=== PATIENT | male | born 1995 | race Caucasian/White ===

== ENCOUNTER 2018-07-27 15:45 | Inpatient (IN) | payer OTHER ==
--- NOTE | 2018-07-27 16:03 | EDPHY ---
H & P Stated Complaint: M1 hold, gravely disabled Source: Patient, Police Exam Limitations: Clinical condition - Personal History Current Tetanus/Diphtheria Vaccine: Unsure Current Tetanus Diphtheria and Acellular Pertussis (TDAP): Unsure - Medical/Surgical History Hx Asthma: No Hx Chronic Respiratory Disease: No Hx Diabetes: No Hx Cardiac Disease: No Hx Renal Disease: No Hx Cirrhosis: No Hx Alcoholism: No Hx HIV/AIDS: No Hx Splenectomy or Spleen Trauma: No - Social History Smoking Status: Current some day smoker Time Seen by Provider: 07/27/18 15:57 HPI/ROS: HPI: This is a 22-year-old male who presents with Chief Complaint: M1 hold Location: Psychiatric Quality: M1 hold Duration: Unknown Signs and Symptoms: denies auditory hallucinations, denies visual hallucinations, denies suicidal ideation with a plan, denies homicidal ideation , denies paranoia Timing: Unknown Severity: Moderate to severe Context: Patient presents accompanied by police on M1 hold. Police report that they were called by the patient's mother who advised that the patient is hearing voices which are telling him to run out of a window. He had cleared a path to the window on the 4th floor of the hotel he was staying in with the intention of jumping out of the window in order to end his life. 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 Patient is a very difficult historian and he is uncooperative with exam. Patient is paranoid, self critical and believes people are talking about him. Unsure if prior psychiatric diagnoses or hospitalizations. Patient will not give me his mother's telephone number. Modifying Factors: Comment: ROS: A comprehensive 10 system review of systems is otherwise negative aside from elements mentioned in the history of present illness. MEDICAL/SURGICAL/SOCIAL HISTORY: Medical history: Recreational Adderall use/abuse Surgical history: Meckel's diverticulum repair, appendectomy Social history: Tobacco user. Drinks alcohol. Family history noncontributory. CONSTITUTIONAL: Tidy, uncooperative with exam, will not answer questions, young adult white male, awake and alert, no obvious distress HEENT: Atraumatic and normocephalic, PERRL, EOMI. Nares patent; no rhinorrhea; no nasal mucosal edema. Tympanic membranes clear. Oropharynx clear, no exudate and moist pink mucosa. Airway patent. No lymphadenopathy. No meningismus. Cardiovascular: Normal S1/S2, regular rate, regular rhythm, without murmur rub or gallop. PULMONARY/CHEST: Symmetrical and nontender. Clear to auscultation bilaterally. Good air movement. No accessory muscle usage. ABDOMEN: Soft, nondistended, nontender, no rebound, no guarding, no peritoneal signs, no masses or organomegaly. No CVAT. EXTREMITIES: 2/2 pulses, strength 5/5, no deformities, no clubbing, no cyanosis or edema. NEUROLOGICAL: no focal neuro deficits. GCS 15. SKIN: Warm and dry, no erythema. no rash. Good capillary refill. PSYCH: Poor eye contact, no flight of ideas, tangential disorganized thought process, poor insight and judgment, denies auditory hallucinations, denies visual hallucinations, denies suicidal ideation with a plan, denies homicidal ideation, denies paranoia (Yoanna Benavidez) Constitutional: Initial Vital Signs Temperature (C) 37 C 07/27/18 15:48 Heart Rate 89 07/27/18 15:48 Respiratory Rate 18 07/27/18 15:48 Blood Pressure 134/85 H 07/27/18 15:48 O2 Sat (%) 97 07/27/18 15:48 O2 Delivery Mode Room Air Allergies/Adverse Reactions: Penicillins Allergy (Verified 07/27/18 15:52) Home Medications: Medication Instructions Recorded NK [No Known Home Meds] 07/27/18 Medical Decision Making ED Course/Re-evaluation: Vital signs reviewed and stable upon arrival. Agree with M1 hold as patient appears to be gravely disabled and uncooperative with exam. Labs and urine drug screen ordered. Nursing staff called police dispatch who did not have any further information. 1700: Laboratory studies reviewed and unremarkable. Urine drug screen negative. Medically clear for mental health evaluation 1707: End of shift. Signed over to Dr. Alex pending mental health evaluation and final disposition. This patient was seen under the supervision of my secondary supervising physician. Discussed this patient with Dr. Alex. (Yoanna Benavidez) I assumed care of the patient at 5pm awaiting psychiatric disposition. (Kj Alex) Differential Diagnosis: Differential diagnosis includes but is not limited to major depression, anxiety disorder, schizophrenia, bipolar disorder, intoxicant use, suicidal ideation, psychosis, camilo. (Yoanna Benavidez) Other Provider: Update at 9:30 p.m.: The patient has been accepted for inpatient psychiatric hospitalization at [facility] by Dr. Luque. I have filled out the EMTALA transfer form. (Kj Alex) - Data Points Laboratory Results: Laboratory Results 07/27/18 14:00 07/27/18 14:00 07/27/18 07/27/18 07/27/18 16:13 14:00 14:00 WBC 6.26 10^3/uL 10^3/uL (3.80-9.50) RBC 4.93 10^6/uL 10^6/uL (4.40-6.38) Hgb 15.7 g/dL g/dL (13.7-17.5) Hct 44.0 % % (40.0-51.0) MCV 89.2 fL fL (81.5-99.8) MCH 31.8 pg pg (27.9-34.1) MCHC 35.7 g/dL g/dL (32.4-36.7) RDW 12.5 % % (11.5-15.2) Plt Count 276 10^3/uL 10^3/uL (150-400) MPV 9.8 fL fL (8.7-11.7) Neut % (Auto) 53.9 % % (39.3-74.2) Lymph % (Auto) 31.8 % % (15.0-45.0) Gregg % (Auto) 9.6 % % (4.5-13.0) Eos % (Auto) 3.8 % % (0.6-7.6) Baso % (Auto) 0.6 % % (0.3-1.7) Nucleat RBC Rel Count 0.0 % % (0.0-0.2) Absolute Neuts (auto) 3.37 10^3/uL 10^3/uL (1.70-6.50) Absolute Lymphs (auto) 1.99 10^3/uL 10^3/uL (1.00-3.00) Absolute Monos (auto) 0.60 10^3/uL 10^3/uL (0.30-0.80) Absolute Eos (auto) 0.24 10^3/uL 10^3/uL (0.03-0.40) Absolute Basos (auto) 0.04 10^3/uL 10^3/uL (0.02-0.10) Absolute Nucleated RBC 0.00 10^3/uL 10^3/uL (0-0.01) Immature Gran % 0.3 % % (0.0-1.1) Immature Gran # 0.02 10^3/uL 10^3/uL (0.00-0.10) Sodium 137 mEq/L mEq/L (135-145) Potassium 4.0 mEq/L mEq/L (3.5-5.2) Chloride 101 mEq/L mEq/L (97-110) Carbon Dioxide 22 mEq/l mEq/l (22-31) Anion Gap 14 mEq/L mEq/L (6-14) BUN 14 mg/dL mg/dL (7-23) Creatinine 0.9 mg/dL mg/dL (0.7-1.3) Estimated GFR > 60 Glucose 94 mg/dL mg/dL (70-100) Calcium 9.8 mg/dL mg/dL (8.5-10.4) Urine Opiates Screen NEGATIVE (NEGATIVE) Urine Barbiturates NEGATIVE (NEGATIVE) Ur Phencyclidine Scrn NEGATIVE (NEGATIVE) Ur Amphetamine Screen NEGATIVE (NEGATIVE) U Benzodiazepines Scrn NEGATIVE (NEGATIVE) Urine Cocaine Screen NEGATIVE (NEGATIVE) U Marijuana (THC) Screen NEGATIVE (NEGATIVE) Ethyl Alcohol < 10 mg/dL mg/dL (0-10) Departure - Departure Disposition: [facility] IP Clinical Impression: Acute psychosis Condition: Good
[2018-07-27] MEDS ORDERED: OLANZapine DISINTEGR 5 MG TAB PO ONE (16:07)
[2018-07-27 16:21] LABS: PLATELET COUNT 276 10^3/uL (150-400)
[2018-07-27] MEDS ORDERED: OLANZapine DISINTEGR 10 MG TAB ONE (22:00)
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
--- NOTE | 2018-07-27 22:49 | ASMTTCLDSP ---
TLC Discharge Disposition Disposition: Answers: Admit Discharge Concerns/Recommendations: Notes: In consultation with [facility] ED physician,Dr Alex and on-call psychiatrist,Dr Luque , both concurred that Pt does appear to meet 27-65 criteria requiring psychiatric hospitalization as Pt does appear to be an imminent risk of harm to self due to grave disability due to a mental illness condition. Pt was read the Patient Rights and Responsibilities Statement on 07/27/2018 at 22:00; he signed the rights and the original was placed in chart and copy given to pt Was patient given the Answers: Yes Inpatient Behavioral Health Prohibited Belongings List while in the ED? For inpatient Dr Luque admission, the following psychiatrist agreed to accept patient for admission to Behavioral [facility] ([facility]): Type of Hold: Answers: M1/72-hour Hold Hold initiated by: Answers: Police Date Signed: 07/27/2018 10:49 PM Electronically Signed By:Jazmyn Carvajal
[2018-07-27] MEDS ORDERED: ACETAMINOPHEN 325 MG TAB PO PRN (23:05)
[2018-07-27] MEDS ORDERED: MAG HYDROX/AL HYDROX/SIMETH 30 ML UDCUP PO PRN (23:05)
[2018-07-27] MEDS ORDERED: MAGNESIUM HYDROXIDE 30 ML UDCUP PO PRN (23:05)
[2018-07-27] MEDS ORDERED: NICOTINE POLACRILEX 2 MG GUM B PRN (23:05)
[2018-07-27] MEDS ORDERED: OLANZapine DISINTEGR 10 MG TAB PO PRN (23:05)
[2018-07-27] MEDS ORDERED: LORazepam 0.5 MG TAB PO PRN (23:05)
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
--- NOTE | 2018-07-28 13:18 | ASMTCMCOM ---
CM Note CM Note Notes: CC met with pt. to complete MTP. Pt. reports sleeping "not too bad, little chilly". Pt. reports getting enough to eat. Pt. stated his goal today is to exercise. Pt. denied SI, HI, and paranoia. Pt. reports AVH, adding "get a little worried about them". Pt. denied any current legal issues, stating he just need to pay his credit card debt. Pt. reports drinking "a little bit" of alcohol. Pt. reports being a heavy THC user until "quit 3 weeks ago", adding he quit due to "weird thoughts". Pt. reports using cocaine once and adderall "couple of times". Pt. stated he is unsure where he will live upon discharge, stating his "stuff in [place]". Pt. presents as alert, calm, possibly responding to internal stimuli, slightly unkempt, fair-good eye contact, and cooperative. Staff report pt. sleeping 6 hours and being medication compliant. CC to determine where pt. will stay upon discharge and to then set up follow up appointments in that area. Date Signed: 07/28/2018 01:17 PM Electronically Signed By:Nu Whalen
--- NOTE | 2018-07-28 15:44 | PDCONSULT ---
Order Desk Caller Note: Da Murray is a 22 year old male with no pmh admitted to [facility] for suicidal ideation. Per chart and patient, he was brought in by police after he told his parents that he was having hallucinations and voices were telling him to jump out of the window of the hotel he was staying at. He currently denies any further hallucinations. He currently denies any pain or any physical complaints. Medicine has been consulted to evaluate for any underlying medical issues. Past medical history None Past surgical history Appendectomy Surgical correction of a Meckel's diverticulum Social history Smokes occasionally cigarettes Drinks 2-3 Alcoholic drinks 2 to 3 times a week says he smokes marijuana religiously Family history He denied any contributory family history Allergies Allergic to penicillin Medications He is on no medications Review of systems Ten point review systems is negative except as in HPI Examination Vitals blood pressure is 130/60, heart rate is 77, respirations 18, saturating 97% on room air, temperature is 36.9 degrees C General 22-year-old male in no acute distress HEENT-PERRLA mucous membranes are moist pink and acyanotic, is head is atraumatic normocephalic Lungs were clear to auscultation bilaterally cv-regular rhythm and rate no murmurs or gallops normal S1-S2 Abdomen- soft nontender nondistended in all 4 quadrants no organomegaly +bs Extremities- no clubbing cyanosis edema or calf pain Skin-no lesions rashes or ecchymosis Neuro-cranial nerves 2-12 grossly intact no focal neurologic deficits Assessment plan 22-year-old male admitted to [facility] for concerns of suicidal ideation No acute underlying medical issues.
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
--- NOTE | 2018-07-28 17:50 | PDMN ---
Medical Necessity Medical necessity: Pt meets inpt criteria per MD order and [facility], Other Psychotic Disorders, Adult: Inpatient Care, 3 days. 22 y/o admitted w/brief psychotic disorder, meeting criteria for psychiatric hospitalization as pt appears to be at risk of harm to self due to grave disability due to a mental illness condition, on M1 hold. Anticipate>2Mn for inpt med nec care.
[2018-07-28] MEDS: OLANZapine DISINTEGR 10 MG TAB PO SCH (20:55)
--- NOTE | 2018-07-29 15:34 | ASMTCMCOM ---
CM Note CM Note Notes: Pt. reports "doing alright. trekking along". Pt. reports sleeping "pretty well, only woke up once". Pt. stated he normally wakes up several times, throughout the night. Pt. reports getting enough to eat and attending groups. Pt. stated he is only taking medications for sleep. Pt. denied SI, HI. Pt. stated "not in here" when asked about AVH. Pt. reports having paranoia "on and off" adding currently it is "no where near from when I came in". Pt. stated he is still unsure where he will be living upon discharge. Pt. stated he will let the CC know once he makes a decision. Pt. presents as alert, calm, good eye contact, groomed, some disorganization, and cooperative. Staff report pt. sleeping 8 hours and being medication compliant. Pt's hold is up on 07/30/18 at 1503. CC to check back in with pt about where he will be living, and if patient is willing to sign any ROIs. CC will provider [facility] walk in times as a backup for the patient. Date Signed: 07/29/2018 03:33 PM Electronically Signed By:Nu Whalen
--- NOTE | 2018-07-29 16:14 | SOAPPROG ---
SOAP Progress Note Assessment/Plan: Assessment: Da Murray is a 22 year old male with no pmh admitted to [facility] for suicidal ideation. Per chart and patient, he was brought in by police after he told his parents that he was having hallucinations and voices were telling him to jump out of the window of the hotel he was staying at. He currently denies any further hallucinations. WEEKEND PLAN: 07/29/18 16:10 1. Patient currently denies AH/VH, though he reports CAH to [facility] prior to admission. 2. Patient denies paranoid delusions even though this was a presenting sx. 3. Patient has agreed to trial of Olanzapine for psychosis. He denies any adverse SE's. 4. Patient admits that he's been smoking "a lot" of THC, and says it gives him "weird thoughts." 5. [facility] expires tomorrow. Subjective: Patient has been calm and cooperative on unit. He attended several groups today and has participated in milieu activities with peers. He denies hallucinations and paranoid delusions, both of which were presenting sxs when he was admitted. He admits that using THC gives him "weird thoughts," and it's likely his psychosis was substance-induced, and may clear in a controlled environment. Patient denies any SI/HI. Objective: Vital Signs Temp Pulse Resp BP Pulse Ox 36.7 C 68 15 131/86 H 97 07/29/18 06:00 07/29/18 06:00 07/29/18 06:00 07/29/18 06:00 07/29/18 06:00 MSE: Affect: Euthymic Mood: "OK" TP: Disorganized, tangential TC: Denies any SI/HI, denies paranoid delusions though this was a presenting sx Perception : Denies any AH/VH Insight/Judgment: Poor - Time Spent With Patient Time Spent With Patient: 15" - Pending Discharge Pending Discharge Within 24 Hours: No Pending Discharge Within 48 Hours: No ICD10 Worksheet Patient Problems: Problems Problem Status Onset Acute psychosis Acute
[2018-07-29] MEDS ORDERED: PNEUMOCOCCAL 0.5ML VACCINE VIAL (PNEUMOVAX 23) IM ONE ×2 (16:59→21:00)
[2018-07-29] MEDS: OLANZapine DISINTEGR 10 MG TAB PO SCH (20:36)
[2018-07-30 06:27] VITALS: BP 130/95
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
== END 2018-07-30 18:58 | DRG 885 ==
LOC: BBEH 22:55
PROVIDERS: ADMIT Psychiatry & Neurology Behavioral Neurology & Neuropsychiatry; ATTEND Psychiatry & Neurology Behavioral Neurology & Neuropsychiatry
DX: F29 Unspecified psychosis not due to a substance or known physiological condition (principal); F12.951 Cannabis use, unspecified with psychotic disorder with hallucinations; F15.951 Other stimulant use, unspecified with stimulant-induced psychotic disorder with hallucinations; Z72.0 Tobacco use; Z23 Encounter for immunization
CPT/HCPCS: 80305; G0008; G0009; G0480

== ENCOUNTER 2018-07-30 15:35 | Emergency (ER) | payer SELFPAY ==
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
[2018-07-30 15:51] VITALS: BP 155/88
[2018-07-30] MEDS ORDERED: TDAP ADULT 0.5 ML INJ (BOOSTRIX) IM ONE (15:51)
== END 2018-07-30 16:30 ==
LOC: EDUNIT#
DX: S80.212A Abrasion, left knee, initial encounter (principal); W01.0XXA Fall on same level from slipping, tripping and stumbling without subsequent striking against object, initial encounter; Y93.01 Activity, walking, marching and hiking

== ENCOUNTER 2018-08-02 15:27 | Emergency (ER) | payer MEDICAID, OTHER ==
[2018-08-02 16:04] LABS: PLATELET COUNT 252 10^3/uL (150-400)
[2018-08-02] MEDS ORDERED: OLANZapine DISINTEGR 10 MG TAB PO ONE (16:04)
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
[2018-08-02 22:53] VITALS: BP 114/60
== END 2018-08-03 00:15 ==
LOC: EDUNIT#
DX: F23 Brief psychotic disorder (principal); F17.200 Nicotine dependence, unspecified, uncomplicated
CPT/HCPCS: 80305; G0480